=== PATIENT | male | born 1995 | race Two or more races ===

== ENCOUNTER 2018-04-15 10:36 | Emergency (ER) | payer MEDICARE, OTHER, MEDICAID ==
--- NOTE | 2018-04-15 10:58 | ER Document Report ---
ED Medical Screen (RME) - General Mode of Arrival: Ambulatory Information source: Patient TRAVEL OUTSIDE OF THE [place] IN LAST 30 DAYS: No <MED ROMERO - Last Filed: 04/15/18 11:10> <DUKE GARNETT - Last Filed: 04/15/18 12:23> - General Chief Complaint: Chest Pressure Stated Complaint: ABDOMINAL PAIN/VOMITING Time Seen by Provider: 04/15/18 10:50 Notes: Patient is a 22 year old male with anxiety and depression presents to the emergency department complaining of multiple symptoms including heart palpitations, left rib pain, trouble breathing and vomiting onset a few months ago. Patient states he would have heart palpitations when walking and getting ready for bed and describes it has his heart skipping a beat. He states he also has been vomiting after almost every meal but denies any weight loss or weight gain. He also reports being unable to sleep and expresses concern for sleep apnea due to a family history. GENERAL: Alert, will make eye contact when shaking hand but does not other marina. HEAD: Normocephalic, Atraumatic. NECK: Full range of motion. Supple. Trachea midline. LUNGS: Clear to auscultation bilaterally, no wheezes, rales, or rhonchi. No respiratory distress. HEART: Regular rate and rhythm. No murmurs, gallops, or rubs. ABDOMEN: Soft, non-tender. Non-distended. Bowel sounds present in all 4 quadrants. EXTREMITIES: Moves all four extremities spontaneously. PSYCH: Anxious, slightly detached affect. I have greeted and performed a rapid initial assessment of this patient. A comprehensive ED assessment and evaluation of the patient, analysis of test results and completion of the medical decision making process will be conducted by additional ED providers. (MED ROMERO) - Related Data Allergies/Adverse Reactions: No Known Allergies Allergy (Verified 04/15/18 10:37) Past Medical History - Social History Chew tobacco use (# tins/day): No Frequency of alcohol use: Occasional Drug Abuse: Marijuana Renal/ Medical History: Denies: Hx Peritoneal Dialysis Psychiatric Medical History: Reports: Hx Depression - and anxiety <MED ROMERO - Last Filed: 04/15/18 11:10> - Vital signs Vitals: Temp Pulse Resp BP Pulse Ox 99.2 F 92 18 120/74 98 04/15/18 10:48 08/05/18 10:48 04/15/18 10:48 04/15/18 10:48 04/15/18 10:48 Course - Laboratory Result Diagrams: 04/15/18 10:58 04/15/18 11:08 <DUKE GARNETT - Last Filed: 04/15/18 12:23> - Vital Signs Vital signs: Temp Pulse Resp BP Pulse Ox 99.2 F 92 19 130/89 H 100 04/15/18 10:48 04/15/18 10:48 04/15/18 12:00 04/15/18 12:00 04/15/18 12:00 - Laboratory Laboratory results interpreted by me: 04/15/18 04/15/18 04/15/18 10:58 11:08 11:08 RBC 5.73 H Plt Count 139 L Seg Neutrophils % 79.2 H Lymphocytes % 12.3 L Sodium 145.3 H Free T3 pg/mL 5.32 H
[2018-04-15 11:25] LABS: ABSOLUTE EOSINOPHILS # (AUTO) 0.1 10^3/uL (0.0-0.6); ABSOLUTE LYMPHOCYTES (AUTO) 0.9 10^3/uL (0.5-4.7); ABSOLUTE MONOCYTES (AUTO) 0.5 10^3/uL (0.1-1.4); ABSOLUTE NEUT (AUTO) 5.8 10^3/uL (1.7-8.2); BASOPHILS % (AUTO) 0.3 % (0-2); EOSINOPHILS % (AUTO) 1.1 % (0-6); HEMATOCRIT 48.8 % (37.9-51.0); HEMOGLOBIN 16.2 g/dL (13.5-17.0); LYMPHOCYTES % (AUTO) 12.3 % (13-45); MEAN CORPUSCULAR HEMOGLOBIN 28.3 pg (27.0-33.4); MEAN CORPUSCULAR HGB CONC 33.3 g/dL (32.0-36.0); MEAN CORPUSCULAR VOLUME 85 fl (80-97); MONOCYTES % (AUTO) 7.1 % (3-13); PLATELET COUNT 139 10^3/uL (150-450); RED BLOOD COUNT 5.73 10^6/uL (4.35-5.55); RED CELL DISTRIBUTION WIDTH 13.3 % (11.5-14.0); SEGMENTED NEUTROPHILS % (AUTO) 79.2 % (42-78); TOTAL CELLS COUNTED % (AUTO) 100 %; WHITE BLOOD COUNT 7.3 10^3/uL (4.0-10.5)
[2018-04-15 11:49] LABS: ALANINE AMINOTRANSFERASE 33 U/L (21-72); ALKALINE PHOSPHATASE 73 U/L (38-126); ANION GAP 16 (5-19); ASPARTATE AMINO TRANSFERASE 39 U/L (17-59); BILIRUBIN,DIRECT 0.3 mg/dL (0.0-0.4); BILIRUBIN,TOTAL 0.6 mg/dL (0.2-1.3); BLOOD UREA NITROGEN 14 mg/dL (7-20); CALCIUM 10.2 mg/dL (8.4-10.2); CARBON DIOXIDE 27 mmol/L (22-30); CHLORIDE 102 mmol/L (98-107); GLUCOSE 92 mg/dL (75-110); POTASSIUM 4.5 mmol/L (3.6-5.0); SODIUM 145.3 mmol/L (137-145); TOTAL PROTEIN 7.8 g/dL (6.3-8.2)
--- NOTE | 2018-04-15 11:52 | ER Document Report ---
ED General - General Chief Complaint: Chest Pressure Stated Complaint: ABDOMINAL PAIN/VOMITING Time Seen by Provider: 04/15/18 10:50 Mode of Arrival: Ambulatory TRAVEL OUTSIDE OF THE [place] IN LAST 30 DAYS: No - HPI Notes: Patient is a 22-year-old male with a history of anxiety and depression presents to the ED complaining of multiple chronic intermittent symptoms over the last 3 + months. Patient states that after he eats he becomes nauseated and will occasionally vomit. The symptoms only occur after p.o. intake and has been lasting for the last 3 months or more. He has not tried any medicines for the symptoms. He does not have any abdominal pain otherwise. Patient states that he also has episodes where his heart will "skip a beat." Patient states that this happens without any known precipitating event. Patient states that he also has had left lower lateral rib pain that he can reproduce when he pushes on it. Patient states that this has been sore over the last several months as well and does not radiate. Patient states that he only has trouble breathing when he feels his heart skip a beat which lasts only a few seconds. Patient also notes insomnia chronically of which she has tried [id number] sleep aids with minimal relief. Patient questions if he has sleep apnea. He has not had any unexplained weight gain or weight loss. Denies any drug allergies. Patient does admit to smoking, and has recently tried to stop smoking marijuana. Denies any other drug use. He has no other concerns or complaints at this time. No prolonged immobilization, trauma/surgery, cancer history, previous DVT/PE, hormone use. Denies any headache, fever, neck pain, changes in vision/speech/mentation/hearing, URI, sore throat, syncope, cough, hemoptysis , current shortness of breath, wheeze, dyspnea, abdominal pain, current nausea/ vomiting/diarrhea, urinary retention, dysuria, hematuria, back pain, loss of control of bowel or bladder, numbness/tingling, muscle paralysis/weakness, or rash. - Related Data Allergies/Adverse Reactions: No Known Allergies Allergy (Verified 04/15/18 10:37) Past Medical History - General Information source: Patient - Social History Smoking Status: Current Every Day Smoker Chew tobacco use (# tins/day): No Frequency of alcohol use: Occasional Drug Abuse: Marijuana Family History: Reviewed & Not Pertinent Patient has suicidal ideation: No Patient has homicidal ideation: No Renal/ Medical History: Denies: Hx Peritoneal Dialysis Psychiatric Medical History: Reports: Hx Depression - and anxiety Review of Systems - Review of Systems -: Yes All other systems reviewed and negative Physical Exam - Vital signs Vitals: Temp Pulse Resp BP Pulse Ox 99.2 F 92 18 120/74 98 04/15/18 10:48 04/15/18 10:48 04/15/18 10:48 04/15/18 10:48 04/15/18 10:48 - Notes Notes: PHYSICAL EXAMINATION: GENERAL: Well-appearing, well-nourished and in no acute distress. A&Ox4. Answers questions appropriately. HEAD: Atraumatic, normocephalic. EYES: Pupils equal round and reactive to light, extraocular movements intact, sclera anicteric, conjunctiva are normal. No nystagmus. ENT: EAC clear b/l. TM's intact b/l without erythema, fluid, or perforation. Nares patent and without discharge. oropharynx clear without exudates. No tonsilar hypertrophy or erythema. Moist mucous membranes. No sinus tenderness. NECK: Normal range of motion, supple without lymphadenopathy. No rigidity/ meningismus. No midline tenderness. Chest/ribs: + reproducible tenderness to palpation of the lateral lower rib left side. LUNGS: Breath sounds clear to auscultation bilaterally and equal. No wheezes rales or rhonchi. HEART: Regular rate and rhythm without murmurs, rubs, gallops. ABDOMEN: Soft, nontender, nondistended abdomen. No guarding, no rebound. Normal bowel sounds present. No CVA tenderness bilaterally. Musculoskeletal: Ext b/l: FROM to passive/active. Strength 5+/5. No deficits noted. Ghazala neg b/l. No LE asymmetry. Extremities: No cyanosis, clubbing, or edema b/l. Peripheral pulses 2+. Capillary refill less than 2 seconds. NEUROLOGICAL: Cranial nerves grossly intact. Normal speech, normal gait. PSYCH: seems anxious, normal affect. Nervousness heard in speech. SKIN: Warm, Dry, normal turgor, no rashes or lesions noted. Course - Re-evaluation Re-evalutation: 04/15/18 13:18 Patient is an afebrile, well-hydrated, 22-year-old male who presents to the ED with multiple non-specific symptoms including nausea, vomiting, palpitation ( "skipped beat"), insomnia, and his reproducible rib pain. All of these issues have been ongoing for over 3 months and have remained unchanged. I suspect that this all could be related to his anxiety and possibly acid reflux. The rib pain does appear to be inflammatory based on H&P today. Vitals are acceptable without any significant tachycardia, tachypnea, or hypoxia. PE is otherwise unremarkable. CBC, CMP, Lipase, Rib/Chest XR, urine drug screen, thyroid panel were unremarkable for any acute pathology. Patient was given Phenergan. Pt is PERC negative, Wells 0. No significant cardiopulmonary risk factors otherwise. He has not had any CP, SOB, or dyspnea. No feelings of palpitations throughout his stay and he was on a cardiac monitory w/o any acute arrthymias noted. No other labs or imaging warranted at this time based on H& P. Patient is tolerating p.o. without difficulties and is nontoxic-appearing. Low suspicion/risk for ACS, PE, Pneumothorax, pericarditis, dissection, acute appendicitis, bowel obstruction, acute cholecystitis, perforated diverticulitis , incarcerated hernia, pancreatitis, perforated ulcer, peritonitis, sepsis, testicular torsion, or other systemic emergent condition at this time. Patient is aware that his condition can change from initial presentation and he needs to monitor symptoms closely and seek medical attention if any acute changes. I will send him home with a prescription for omeprazole as well as Zofran. Conservative measures otherwise for symptoms. Recheck with PCM in 2-3 days. Consider consult with a security manager/linotype machinist apprentice. Return to the ED with any worsening/concerning symptoms otherwise as reviewed in discharge. Patient is in agreement. - Vital Signs Vital signs: Temp Pulse Resp BP Pulse Ox 99.2 F 92 19 130/89 H 100 04/15/18 10:48 04/15/18 10:48 04/15/18 12:00 04/15/18 12:00 04/15/18 12:00 - Laboratory Result Diagrams: 04/15/18 10:58 04/15/18 11:08 Laboratory results interpreted by me: 04/15/18 04/15/18 04/15/18 10:58 11:08 11:08 RBC 5.73 H Plt Count 139 L Seg Neutrophils % 79.2 H Lymphocytes % 12.3 L Sodium 145.3 H Free T3 pg/mL 5.32 H Discharge - Discharge Clinical Impression: Rib pain on left side, Palpitations Nausea and vomiting Qualifiers: Vomiting type: unspecified Vomiting Intractability: non-intractable Qualified Code(s): R11.2 - Nausea with vomiting, unspecified Insomnia Qualifiers: Insomnia type: unspecified Qualified Code(s): G47.00 - Insomnia, unspecified Condition: Stable Disposition: HOME, SELF-CARE Instructions: Vomiting ([facility]), Antinausea Medication ([facility]), Palpitations ( Irregular or Rapid Heartrate) ([facility]), Insomnia ([facility]), Family Physicians / Practices Additional Instructions: Maintain adequate fluid and food intake [place] diet ([employer] Bananas, rice, apples, toast, etc Zofran as needed tylenol if needed Monitor for any worsening symptoms Make sure you are staying hydrated enough to urinate and have normal BM's Recheck with your PCM in 2-3 days Consider consult with Gastroenterology/Cardiology for ongoing/worsening symptoms Return to the ED with any worsening symptoms and/or development of fever, headache, chest pain, palpitations, syncope, shortness of breath, trouble breathing, abdominal pain, n/v/d, blood in stool/urine, weakness, or other worsening symptoms that are concerning to you. For your ongoing issues: You may need to be placed on an event cardiac cath technician (call cardiology tomorrow to schedule an appointment) Consider having a sleep study performed for your insomnia Consider seeing GI for your n/v after eating food. Prescriptions: Naproxen 500 mg PO BID PRN #30 tablet PRN Reason: Omeprazole 20 mg PO DAILY #30 tablet. Ondansetron [Zofran Odt 4 mg Tablet] 1 - 2 tab PO Q4H PRN #15 tab.rapdis PRN Reason: For Nausea/Vomiting Forms: Elevated Blood Pressure, Smoking Cessation Education Referrals: SHANIQUA HARDING MD [ACTIVE STAFF] - Follow up in 3-5 days RENO PACKER MD [ACTIVE STAFF] - Follow up in 3-5 days
[2018-04-15] MEDS ORDERED: PROMETHAZINE HCL INJ 25 MG/1 ML VIAL IM ONE (11:59)
[2018-04-15 12:04] LABS: FREE T3 5.32 pg/mL (2.77-5.27); FREE T4 (FREE THYROXINE) 1.29 ng/dL (0.78-2.19)
[2018-04-15 12:18] LABS: THYROID STIMULATING HORMONE 2.29 uIU/mL (0.47-4.68)
--- NOTE | 2018-04-15 13:08 | RADIOLOGY REPORT (SQ) ---
EXAM DESCRIPTION: RIBS LEFT W/PA CHEST COMPLETED DATE/TIME: 04/15/2018 12:26 pm REASON FOR STUDY: left lower lateral rib pain COMPARISON: None. TECHNIQUE: Frontal view of the chest and additional views of the left ribs acquired. NUMBER OF VIEWS: PA chest. Four view rib detail. LIMITATIONS: None. FINDINGS: FRONTAL CXR: No pneumothorax. No pleural effusion. No atelectasis or infiltrates. RIBS: No displaced rib fractures. No lytic or blastic bony lesions. OTHER: No other significant finding. IMPRESSION: Normal chest. Normal left ribs. . TECHNICAL DOCUMENTATION: JOB ID: [id number] [employer]- All Rights Reserved Reading location - IP/workstation name: [email or web address]
[2018-04-15 13:09] LABS: URINE AMPHETAMINES SCREEN NEGATIVE; URINE BARBITURATES SCREEN NEGATIVE; URINE BENZODIAZEPINES SCREEN NEGATIVE; URINE COCAINE SCREEN NEGATIVE; URINE MARIJUANA (THC) SCREEN NEGATIVE; URINE METHADONE SCREEN NEGATIVE; URINE PHENCYCLIDINE SCREEN NEGATIVE
[2018-04-15 13:56] VITALS: BP 124/88
--- NOTE | 2018-04-15 23:40 | EKG REPORT ---
SEVERITY:- BORDERLINE ECG - SINUS RHYTHM INFERIOR Q WAVES, PROBABLY NORMAL VARIATION LATERAL Q WAVES, PROBABLY NORMAL VARIATION : Confirmed by: Chana Ballard 15-Apr-2018 23:39:30
== END 2018-04-15 13:56 | disposition home or self-care (01) ==
LOC: ER 10:36
DX: R11.2 Nausea with vomiting, unspecified (principal); R07.81 Pleurodynia; R00.2 Palpitations; G47.00 Insomnia, unspecified; F17.200 Nicotine dependence, unspecified, uncomplicated; F12.10 Cannabis abuse, uncomplicated
CPT/HCPCS: 93005; 99284; 96372; 36415; 84439; 83690; 84443; 85025; 80053; 80307; 84481; 71101; 93010; J2550